=== PATIENT | male | born 1930 | race Caucasian/White ===

== ENCOUNTER 2018-10-27 19:51 | Observation (INO) ==
--- NOTE | 2018-10-27 20:12 | ERNOTE ---
Dyspnea - Date Date of Service: 10/27/18 - General Presenting Symptoms: shortness of breath, other - confused Time Seen by Provider: 10/27/18 20:01 Source: EMS Exam Limitations: clinical condition - Immun/Allergies/Home Medications Immunizations: IMMUNIZATION HX Immunizations Up to Date unknown History of Influenza Vaccine More Information Required Hx Pneumococcal Vaccination More Information Required Allergies/Adverse Reactions: Allergies No Known Drug Allergies Allergy (Verified 10/27/18 21:28) Home Medications: HOME MEDICATIONS Acetaminophen [Tylenol] 600 mg PO Q4H PRN 10/27/18 [Last Taken Unknown] Carbidopa/Levodopa [Carbidopa-Levodopa 25-100 Tab] 1 tab PO TID 10/27/18 [Last Taken Unknown] Dextran 70/Hypromellose [Natural Balance Tears Eye Drop] 3 - 4 drp EACHEYE DAILY 10/27/18 [Last Taken Unknown] Furosemide [Lasix] 40 mg PO DAILY 10/27/18 [Last Taken Unknown] Propylene Glycol/Peg 400/Pf [Systane 0.3-0.4% Eye Drops] 1 drp EACHEYE TID 10/27/18 [Last Taken Unknown] RX: Memantine HCl 10 mg PO BID 10/27/18 [Last Taken Unknown] Sennosides/Docusate Sodium [Senexon-S Tablet] 2 tab PO BID PRN 10/27/18 [Last Taken Unknown] guaiFENesin/DEXTROMETHORPHAN [Sm Tussin Dm Liquid] 10 ml PO Q4H PRN 10/27/18 [Last Taken Unknown] - History of Present Illness Narrative: 88 year old male with history of parkinsons, presenting with altered mental status. He is brought in from the skilled nursing due to confusion, possible stroke symptoms, dyspnea. He appears anxious, non communicative. Denies symptoms. He can move both arms. He is maintaining his airway. He was brought in due to altered mental status that started at dinner. He is alert, and follows commands in the ER. He is tachycardic, and in A Fib. 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 Initiating event: Reports: unknown Review of Systems - Review of Systems Constitutional: Present: See HPI EYE: Present: no symptoms reported ENT: Present: no symptoms reported Respiratory: Present: shortness of breath Cardiology: Present: no symptoms reported Gastrointestinal/Abdominal: Present: no symptoms reported Genitourinary: Present: no symptoms reported Musculoskeletal: Present: no symptoms reported Skin: Present: no symptoms reported Neurological: Present: weakness Endocrine: Present: no symptoms reported Hematologic/Lymphatic: Present: no symptoms reported Psych: Present: anxiety Medical History (Last Reviewed 10/27/18 @ 20:10 by Radha Sethi MD) Dry eye syndrome (Chronic) Onset Date: Unknown Constipation (Chronic) Onset Date: Unknown Cough (Chronic) Onset Date: Unknown Parkinsons disease (Chronic) Onset Date: Unknown Osteoporosis (Chronic) Onset Date: Unknown Dementia (Chronic) Onset Date: Unknown Edema Onset Date: Unknown Surgical History: Surgical History (Last Reviewed 10/28/18 @ 05:49 by Radha Sethi MD) Surgical history unknown Family History: Family History (Last Reviewed 10/28/18 @ 05:49 by Radha Sethi MD) Other Family history unknown Social History: Preferred Language Brazilian Smoking Status Unknown if ever smoked Alcohol Use none Drug Use none (Last Reviewed 10/18/18 @ 08:53 by Tabitha Benitez) No Social History Section defined Physical Exam - Physical Exam General Appearance: Present: wd/wn, alert, mild distress Head Exam: Present: normal inspection, no evidence of injury Eye Exam: Normal inspection: bilateral, PERRL: bilateral, EOMI: bilateral Ears, Nose, Throat: Present: normal ENT inspection, normal pharynx Neck: Present: normal inspection, nontender Respiratory: Present: no respiratory distress, normal breath sounds, no accessory muscle use, chest nontender, decreased breath sounds Cardiovascular/Chest: Present: no murmur, normal peripheral pulses, tachycardia Gastrointestinal/Abdominal: Present: normal bowel sounds, nontender, nondistended, soft, no organomegaly Back Exam: Present: normal inspection, normal range of motion, no CVA tenderness, no vertebral tenderness Extremity Exam: Present: normal inspection, non-tender, normal range of motion Neurological Exam: Present: alert, other - non communicative, however he does follow some commands and is able to use his upper extremities he appears anxious Skin Exam: Present: normal color, warm/dry Lymphatic Exam: Present: no adenopathy Progress - Results and Orders Patient's Lab Results:: I have reviewed the patient's lab results. - Vital Signs Patient's Vital Signs:: I have reviewed the patient's vital signs. Vital Signs: Vital Signs 10/27/18 19:52 Temperature 37.4 C Pulse Rate 107 H Respiratory Rate 25 H Blood Pressure 133/73 O2 Sat by Pulse Oximetry 93 - EKG EKG #1 EKG: other EKG read: Interp. by me - sinus tachycardia with frequent supraventricular premature complexes, no acute ST or T wave abnormalities, compared with prior EKG on 12/25/17 - X-Ray X-Ray #1 X-Ray: chest - unable to exclude left lower lobe infiltrate, cardiomegaly, mild interstitial change suggesting CHF - CT/Ultrasound CT/Ultrasound Narrative: Head CT no acute disease in the brain. Sinusitis - Progress/Reassessment Chief Complaint: Dyspnea - Transfer of Care Receiving Physician: Kathy Cagle Expected Disposition: Admit - Admit to Dr. Cagle Plan - Plan Plan: repeat EKG Atrial fibrillation [address] Cagle will admit for new onset atrial fibrillation, he does have elevated LFTs probably related to CHF. Cardizem drip will be started Departure Clinical Impression: Atrial fibrillation - Departure Disposition: Still a patient Condition: Fair
[2018-10-27 20:23] LABS: Hematocrit 39.5 % (42.0-52.0); Hemoglobin 13.4 gm/dL (13.5-18.0); Mean Cell Volume 96.8 fl (78-100); Mean Corpuscular Hemoglobin 32.8 pg (27-31); Mean Corpuscular Hgb Conc 33.9 g/dl (32-36); Mean Platelet Volume 10.2 fl (8-11.3); Neutrophil # 10.5 K/mm3 (1.3-6.0); Neutrophil % 79.3 % (42-75.0); Platelet Count 253 K/mm3 (150-450); Red Blood Count 4.08 M/mm3 (4.7-6.0); Red Cell Distribution Width 13.1 % (11.5-14.0); White Blood Count 13.3 K/mm3 (4.0-10.5)
[2018-10-27 20:44] LABS: ALT 278 U/L (19-67); AST 349 U/L (0-48); Albumin * 2.3 gm/dl (3.4-5.0); Alkaline Phosphatase * 256 U/L (50-170); Anion Gap 17.4 mmol/L (6.8-13.8); BNP * 1080 pg/mL (5-650); Bilirubin, Total 2.5 mg/dL (0.0-1.1); Blood Urea Nitrogen 19 mg/dL (6-23); Ca. Corrected For Albumin 9.2 mg/dL (8.4-10.2); Calcium * 8.2 mg/dL (7.9-10.9); Carbon Dioxide 21.9 mmol/L (24-32.6); Chloride 102 mmol/L (97-106); Glucose * 145 mg/dL (70-110); Potassium 3.3 mmol/L (3.4-4.6); Sodium 138 mmol/L (132-142); Total Protein 7.5 gm/dL (6.2-8.2)
[2018-10-27 20:51] LABS: Troponin I Less than 0.017 ng/mL (0.00-0.10)
[2018-10-27] MEDS ORDERED: DILTIAZEM HCL 5 MG/ML VIAL IV ONE ×2 (22:04→22:06)
[2018-10-27] MEDS ORDERED: NORMAL SALINE 500 ML IV ONE (22:30)
[2018-10-27 22:47] LABS: Urine Bilirubin 3 mg/dl (NEGATIVE); Urine Ketone 5 mg/dL (NEGATIVE); Urine Nitrite Negative (NEGATIVE); Urine Protein 100 mg/dL (NEGATIVE); Urine Specific Gravity >=1.030 SP.GR. (1.005-1.030); Urine Urobilinogen >=8.0 EU/dl (NORMAL)
[2018-10-27] MEDS ORDERED: ENOXAPARIN SODIUM 80 MG/0.8 ML DISP.SYRIN SC ONE (22:49)
[2018-10-27 22:51] LABS: INR 1.3 INR (0.90-1.10); Partial Thrombolplastin Time 31.6 Seconds (24-32)
[2018-10-27] MEDS ORDERED: DILTIAZEM HCL 125 MG in DEXTROSE 5 % IN WATER 100 ML IV PRN ×2 (22:59)
[2018-10-27 23:06] LABS: Urine Appearance Cloudy (CLEAR); Urine Blood 5 /ul (NEGATIVE); Urine Color Orange; Urine RBC TRACE /hpf (0-5); Urine Renal Epithelial Cell Few - 1+ /hpf; Urine WBC None Seen /hpf (0-5)
[2018-10-27 23:07] LABS: Urine Amorphous Sediment Few - 1+ (NONE-FEW); Urine Bacteria 1+; Urine Mucus Moderate - 2+
[2018-10-28] MEDS ORDERED: ENOXAPARIN SODIUM 80 MG/0.8 ML DISP.SYRIN SC ONE (00:33)
[2018-10-28] MEDS ORDERED: DILTIAZEM HCL 30 MG TABLET PO SCH (03:15)
[2018-10-28] MEDS: METOPROLOL TARTRATE 25 MG TABLET PO SCH ×2 (03:35→08:19)
[2018-10-28] MEDS ORDERED: SENNOSIDES/DOCUSATE SODIUM 1 TAB TABLET PO PRN (07:10)
[2018-10-28] MEDS ORDERED: ACETAMINOPHEN 325 MG TABLET PO PRN (07:10)
[2018-10-28] MEDS: CARBIDOPA/LEVODOPA 25/100 1 TAB TABLET PO SCH ×3 (08:19→17:25)
[2018-10-28] MEDS: MEMANTINE HCL 10 MG TABLET PO SCH ×2 (08:19→22:52)
--- NOTE | 2018-10-28 09:35 | HP ---
Chief Complaint - Chief Complaint Date of Service: 10/28/18 Time of Service: 07:20 Chief Complaint: atrial fib, choking episode, abnormal LFTs History of Present Illness: Mr. White is an 88 yo wh male that was admitted yesterday throught he ER after having a choking episode at the [facility] where he has been a resident for several years. He became distressed and was sent to ER for evaluation. He was found to be in A-fib with RVR and then converted back to NSR about 2:30 this morning. He has advanced dementia and Parkinson's dz. His admitting lab shows all liver enzymes to be elevated. Etiology is unknown at this time. He did eat breakfast this morning so a fasting abd. us is not possible but I will proceed anyway. I suspect it is biliary outlet obstruction from something. 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 Osteoarthritis Presence of intraocular lens Tinnitus Unspecified open-angle glaucoma, stage unspecified Unspecified sensorineural hearing loss Edema Onset Date: Unknown Surgical History: Surgical History (Last Reviewed 10/28/18 @ 05:49 by Radha Sethi MD) Surgical history unknown Family History: Family History (Last Reviewed 10/28/18 @ 05:49 by Radha Setih MD) Other Family history unknown Social History: Patient Lives/Resources [facility] Utilized Preferred Language Italian Smoking Status Never smoker Have you smoked in the past 12 unknown months Alcohol Use none Drug Use none (Last Reviewed 10/18/18 @ 08:53 by Tabitha Benitez) No Social History Section defined Review Of Systems (GEN) - Review of Systems EENTM: Present: No Symptoms Reported Respiratory: Present: Cough, Shortness of Breath Cardiac: Present: Palpitations Abdominal: Present: Nausea, Abdominal Pain Genitourinary: Present: Incontinent Musculoskeletal: Present: Other - stiffness from Parkinson's dz. Neurological: Present: Tremors - Parkinsonian Skin: Present: No Symptoms Reported Endocrine: Present: No Symptoms Reported Misc: All systems neg except as marked Immunizations: IMMUNIZATION HX Immunizations Up to Date unknown History of Influenza Vaccine More Information Required Hx Pneumococcal Vaccination More Information Required Allergies/Adverse Reactions: Allergies Allergy/AdvReac Type Severity Reaction Status Date / Time No Known Drug Allergies Allergy Verified 10/27/18 21:28 Home Medications: HOME MEDICATIONS Acetaminophen [Tylenol] 600 mg PO Q4H PRN 10/27/18 [Last Taken Unknown] Carbidopa/Levodopa [Carbidopa-Levodopa 25-100 Tab] 1 tab PO TID 10/27/18 [Last Taken Unknown] Dextran 70/Hypromellose [Natural Balance Tears Eye Drop] 3 - 4 drp EACHEYE DAILY 10/27/18 [Last Taken Unknown] Furosemide [Lasix] 40 mg PO DAILY 10/27/18 [Last Taken Unknown] Memantine HCl 10 mg PO BID 10/27/18 [Last Taken Unknown] Propylene Glycol/Peg 400/Pf [Systane 0.3-0.4% Eye Drops] 1 drp EACHEYE TID 10/27/18 [Last Taken Unknown] Sennosides/Docusate Sodium [Senexon-S Tablet] 2 tab PO BID PRN 10/27/18 [Last Taken Unknown] guaiFENesin/DEXTROMETHORPHAN [Sm Tussin Dm Liquid] 10 ml PO Q4H PRN 10/27/18 [Last Taken Unknown] Exam - Exam Vital Signs: Vital Signs - Last Taken Temp 36.6 C 10/28/18 08:02 Pulse 91 10/28/18 08:19 Resp 18 10/28/18 08:02 BP 114/70 10/28/18 08:19 Pulse Ox 94 10/28/18 08:02 Constitutional: Present: Alert, Cooperative, Well developed, Well nourished, Mild distress, Lethargic, Elderly. Absent: Oriented x3 ENT Exam: Present: normal ENT inspection Eye Exam: bilateral eye: normal inspection, PERRL, EOMI Neck: Present: non-tender, full range of motion, supple, normal inspection Back Exam: Present: normal inspection, no CVA tenderness, no vertebral tenderness Breasts: Present: Exam deferred Respiratory: Present: lungs clear, normal breath sounds, decreased breath sounds Cardiovascular/Chest: Present: normal peripheral pulses, tachycardia, edema - And opositive HJR at 90deg. Peripheral Pulses: carotid (R): 2+, carotid (L): 2+, radial (R): 2+, radial (L): 2+ Abdomen: Present: Normal bowel sounds, soft, nontender, nondistended. 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 Appearance: Present: appropriate appearance, impaired insight, impaired recent memory, impaired remote memory Eye contact: Present: cooperative, good eye contact. Absent: normal speech - Speech is one word, usually NO. Thoughts: Present: no apparent hallucination. Absent: normal thought pattern Diagnostic Studies: Abnormal Lab Results 10/27/18 10/27/18 10/27/18 Range/Units 20:20 20:20 22:40 WBC 13.3 H (4.0-10.5) K/mm3 RBC 4.08 L (4.7-6.0) M/mm3 Hgb 13.4 L (13.5-18.0) gm/dL Hct 39.5 L (42.0-52.0) % MCH 32.8 H (27-31) pg Immature Gran % (Auto) 1.00 H (0.001-0.429) % Immature Gran # (Auto) 0.13 H (0.000-0.0310) K/mm3 Neutrophils % 79.3 H (42-75.0) % Lymphocytes % 10.0 L (20-51) % Monocytes % 9.4 H (0.0-9) % Neutrophils # 10.5 H (1.3-6.0) K/mm3 Lymphocytes # 1.32 L (1.5-3.5) k/mm3 Monocytes # 1.2 H (0.0-1.0) k/mm3 PT 13.0 H (9.0-11.0) Seconds INR (Anticoag Therapy) 1.30 H (0.90-1.10) INR Potassium 3.3 L (3.4-4.6) mmol/L Carbon Dioxide 21.9 L (24-32.6) mmol/L Anion Gap 17.4 H (6.8-13.8) mmol/L Random Glucose 145 H (70-110) mg/dL Total Bilirubin 2.5 H (0.0-1.1) mg/dL AST 349 H (0-48) U/L ALT 278 H (19-67) U/L Alkaline Phosphatase 256 H (50-170) U/L B-Natriuretic Peptide 1080 H (5-650) pg/mL Albumin 2.3 L (3.4-5.0) gm/dl Urine Protein (NEGATIVE) mg/dL Urine Glucose (UA) (NEGATIVE) mg/dL Urine Blood (NEGATIVE) /ul Urine Bilirubin (NEGATIVE) mg/dl Urine Ictotest (NEGATIVE) Prot Sulfosalicylic Acd (0) mg/dL Urine Urobilinogen (NORMAL) EU/dl Ur Renal Epithelial Cell (NONE) /hpf Urine Bacteria (NONE) Urine Mucus (NONE) 10/27/18 Range/Units 22:40 WBC (4.0-10.5) K/mm3 RBC (4.7-6.0) M/mm3 Hgb (13.5-18.0) gm/dL Hct (42.0-52.0) % MCH (27-31) pg Immature Gran % (Auto) (0.001-0.429) % Immature Gran # (Auto) (0.000-0.0310) K/mm3 Neutrophils % (42-75.0) % Lymphocytes % (20-51) % Monocytes % (0.0-9) % Neutrophils # (1.3-6.0) K/mm3 Lymphocytes # (1.5-3.5) k/mm3 Monocytes # (0.0-1.0) k/mm3 PT (9.0-11.0) Seconds INR (Anticoag Therapy) (0.90-1.10) INR Potassium (3.4-4.6) mmol/L Carbon Dioxide (24-32.6) mmol/L Anion Gap (6.8-13.8) mmol/L Random Glucose (70-110) mg/dL Total Bilirubin (0.0-1.1) mg/dL AST (0-48) U/L ALT (19-67) U/L Alkaline Phosphatase (50-170) U/L B-Natriuretic Peptide (5-650) pg/mL Albumin (3.4-5.0) gm/dl Urine Protein 100 H (NEGATIVE) mg/dL Urine Glucose (UA) 250 H (NEGATIVE) mg/dL Urine Blood 5 H (NEGATIVE) /ul Urine Bilirubin 3 H (NEGATIVE) mg/dl Urine Ictotest Positive H (NEGATIVE) Prot Sulfosalicylic Acd 4+ H (0) mg/dL Urine Urobilinogen >=8.0 H (NORMAL) EU/dl Ur Renal Epithelial Cell Few - 1+ H (NONE) /hpf Urine Bacteria 1+ H (NONE) Urine Mucus Moderate - 2+ H (NONE) Microbiology 10/27/18 23:08 Urine Culture - Preliminary Urine,Catheterized No Growth Laboratory Results WBC 13.3 K/mm3 (4.0-10.5) H 10/27/18 20:20 RBC 4.08 M/mm3 (4.7-6.0) L 10/27/18 20:20 Hgb 13.4 gm/dL (13.5-18.0) L 10/27/18 20:20 Hct 39.5 % (42.0-52.0) L 10/27/18 20:20 MCV 96.8 fl (78-100) 10/27/18 20:20 MCH 32.8 pg (27-31) H 10/27/18 20:20 MCHC 33.9 g/dl (32-36) 10/27/18 20:20 RDW 13.1 % (11.5-14.0) 10/27/18 20:20 Plt Count 253 K/mm3 (150-450) 10/27/18 20:20 MPV 10.2 fl (8-11.3) 10/27/18 20:20 Immature Gran % (Auto) 1.00 % (0.001-0.429) H 10/27/18 20:20 Immature Gran # (Auto) 0.13 K/mm3 (0.000-0.0310) H 10/27/18 20:20 Neutrophils % 79.3 % (42-75.0) H 10/27/18 20:20 Lymphocytes % 10.0 % (20-51) L 10/27/18 20:20 Monocytes % 9.4 % (0.0-9) H 10/27/18 20:20 Eosinophils % 0.1 % (0.0-3.0) 10/27/18 20:20 Basophils % 0.2 % (0.0-1.0) 10/27/18 20:20 Nucleated RBC % 0.0 k/mm3 (0-1) 10/27/18 20:20 Neutrophils # 10.5 K/mm3 (1.3-6.0) H 10/27/18 20:20 Lymphocytes # 1.32 k/mm3 (1.5-3.5) L 10/27/18 20:20 Monocytes # 1.2 k/mm3 (0.0-1.0) H 10/27/18 20:20 Eosinophils # 0.0 k/mm3 (0.0-0.7) 10/27/18 20:20 Absolute Basophils 0.0 k/mm3 (0.0-0.1) 10/27/18 20:20 PT 13.0 Seconds (9.0-11.0) H 10/27/18 22:40 INR (Anticoag Therapy) 1.30 INR (0.90-1.10) H 10/27/18 22:40 PTT ([place]) 31.6 Seconds (24-32) 10/27/18 22:40 Sodium 138 mmol/L (132-142) 10/27/18 20:20 Plasma Sodium 139 mmol/L (130-142) 10/27/18 20:20 Potassium 3.3 mmol/L (3.4-4.6) L 10/27/18 20:20 Chloride 102 mmol/L (97-106) 10/27/18 20:20 Carbon Dioxide 21.9 mmol/L (24-32.6) L 10/27/18 20:20 Anion Gap 17.4 mmol/L (6.8-13.8) H 10/27/18 20:20 BUN 19 mg/dL (6-23) 10/27/18 20:20 Creatinine 1.00 mg/dL (0.4-1.4) 10/27/18 20:20 Est GFR (Non-Af Amer) 75 mL/min (60-130) 10/27/18 20:20 BUN/Creatinine Ratio 19.0 (9.0-21.6) 10/27/18 20:20 Random Glucose 145 mg/dL (70-110) H 10/27/18 20:20 Lactic Acid, Venous 1.6 mmol/L (0.4-2.0) 10/27/18 20:20 Calcium 8.2 mg/dL (7.9-10.9) 10/27/18 20:20 Calcium Adj for Albumin 9.2 mg/dL (8.4-10.2) 10/27/18 20:20 Total Bilirubin 2.5 mg/dL (0.0-1.1) H 10/27/18 20:20 AST 349 U/L (0-48) H 10/27/18 20:20 ALT 278 U/L (19-67) H 10/27/18 20:20 Alkaline Phosphatase 256 U/L (50-170) H 10/27/18 20:20 Troponin I Less than 0.017 ng/mL (0.00-0.10) 10/27/18 20:20 B-Natriuretic Peptide 1080 pg/mL (5-650) H 10/27/18 20:20 Total Protein 7.5 gm/dL (6.2-8.2) 10/27/18 20:20 Albumin 2.3 gm/dl (3.4-5.0) L 10/27/18 20:20 Urine Color [place] 10/27/18 22:40 Urine Appearance Cloudy (CLEAR) 10/27/18 22:40 Urine pH 6.0 pH (5.0-7.0) 10/27/18 22:40 Ur Specific [place] >=1.030 SP.GR. (1.005-1.030) 10/27/18 22:40 Urine Protein 100 mg/dL (NEGATIVE) H 10/27/18 22:40 Urine Glucose (UA) 250 mg/dL (NEGATIVE) H 10/27/18 22:40 Urine Ketones 5 mg/dL (NEGATIVE) 10/27/18 22:40 Urine Blood 5 /ul (NEGATIVE) H 10/27/18 22:40 Urine Nitrate Negative (NEGATIVE) 10/27/18 22:40 Urine Bilirubin 3 mg/dl (NEGATIVE) H 10/27/18 22:40 Urine Ictotest Positive (NEGATIVE) H 10/27/18 22:40 Prot Sulfosalicylic Acd 4+ mg/dL (0) H 10/27/18 22:40 Urine Urobilinogen >=8.0 EU/dl (NORMAL) H 10/27/18 22:40 Ur Leukocyte Esterase Negative /ul (NEGATIVE) 10/27/18 22:40 Urine RBC Trace /hpf (0-5) 10/27/18 22:40 Urine WBC None seen /hpf (0-5) 10/27/18 22:40 Ur Epithelial Cells Trace /hpf (0-5) 10/27/18 22:40 Ur Renal Epithelial Cell Few - 1+ /hpf (NONE) H 10/27/18 22:40 Amorphous Sediment Few - 1+ (NONE-FEW) 10/27/18 22:40 Urine Bacteria 1+ (NONE) H 10/27/18 22:40 Urine Mucus Moderate - 2+ (NONE) H 10/27/18 22:40 Urine Culture Comments Culture to follow 10/27/18 22:40 Assessment/Plan - Narrative Narrative: He came in with A-fib which has spontaneously converted. He was found to have gilliam elevation of his LFTs with elevated bilirubin and hyperbilirubinuria. An abdominal US is ordered. This appears to be biliary outlet obstruction but the etiology is yet to be determined. He was admitted to [place] for a regular hospital stay. - Assessment/Plan (1) Abnormal LFTs (liver function tests) Problem: Acute (2) Weakness Problem: Acute (3) Atrial fibrillation Problem: Acute (4) Cough Problem: Chronic (5) Parkinsons disease Problem: Chronic (6) Dementia Problem: Chronic Qualifiers: Dementia type: Parkinson's disease
[2018-10-29 05:33] LABS: Hematocrit 37.2 % (42.0-52.0); Hemoglobin 12.4 gm/dL (13.5-18.0); Mean Cell Volume 97.9 fl (78-100); Mean Corpuscular Hemoglobin 32.6 pg (27-31); Mean Corpuscular Hgb Conc 33.3 g/dl (32-36); Mean Platelet Volume 10.6 fl (8-11.3); Neutrophil # 8.6 K/mm3 (1.3-6.0); Neutrophil % 71.2 % (42-75.0); Platelet Count 266 K/mm3 (150-450); Red Cell Distribution Width 13.3 % (11.5-14.0)
[2018-10-29 05:50] LABS: Anion Gap 12.2 mmol/L (6.8-13.8); BUN/Creatinine Ratio 18.8 (9.0-21.6); Bilirubin, Total 0.9 mg/dL (0.0-1.1); Ca. Corrected For Albumin 9.7 mg/dL (8.4-10.2); Calcium * 8.4 mg/dL (7.9-10.9); Carbon Dioxide 25.3 mmol/L (24-32.6); Potassium 3.5 mmol/L (3.4-4.6); Total Protein 6.7 gm/dL (6.2-8.2)
[2018-10-29] MEDS: CARBIDOPA/LEVODOPA 25/100 1 TAB TABLET PO SCH ×2 (09:00→14:02)
[2018-10-29] MEDS ORDERED: MORPHINE SULFATE 4 MG/ML SYRG IV ONE (11:15)
[2018-10-29 13:30] VITALS: BP 140/80
--- NOTE | 2018-10-29 13:33 | DS ---
(1) Choledocholithiasis with cholecystitis Problem: Acute (2) Abnormal LFTs (liver function tests) Problem: Acute (3) Weakness Problem: Resolved (4) Atrial fibrillation Problem: Resolved (5) Cough Problem: Chronic (6) Parkinsons disease Problem: Chronic (7) Dementia Problem: Chronic Qualifiers: Dementia type: Parkinson's disease Description of Stay: Javon White is an 88-year-old male who was admitted through the ER with chief complaint of shortness of breath, anxiety, irregular heart rhythm. In the emergency room he was discovered to be in atrial fibrillation with RVR. He has a large hiatal hernia that may have been mistaken for pneumonia but the chest x-ray does not reveal any pneumonia. The patient was admitted to the hospital through Dr. Cagle who was on-call. During the night he converted back to normal sinus rhythm spontaneously and remained there. I assumed his care at 8:00 yesterday morning and found him to be in normal sinus rhythm. In reviewing the chart I found that all his liver enzymes were elevated including bilirubin and alkaline phosphatase as well as transaminases. The abdomen was soft and I could not elicit any guarding from him. Because of his dementia could not determine whether he had pain or not. I attempted Gong's test but he was unable to take a deep breath on command. Abdominal ultrasound revealed what appears to be multiple stones in the gallbladder edema of the gallbladder sac. Speaking with the surgeons were determined to do a HIDA scan which shows no visualization of the gallbladder but there is good drainage through the common bile duct now. The liver enzymes this morning are much improved. The white count has also come down to normal. I decided to treat him with oral antibiotics, Bactrim DS, twice a day for 7 days, monitor his white count and tushar er enzymes every 3 days for the next 10 days, and monitor vital signs twice daily. If he continues to improve and no surgical intervention will be done. If he does worsen then he'll have to go to the [facility] to have laparoscopic cholecystectomy. I spoken with his who is his POA and explained the course of events and findings and my recommendations in which she is in agreement. She understands that he may have further gallbladder attacks in the future because of the continued large amount of stones in his gallbladder. [facility]'ll be returned to [facility]. Procedures Performed: see notes below List Procedures: Abdominal ultrasound, hepatobiliary scan, Results and Findings: Pending Mircobiology Results 10/27/18 23:08 Urine,Catheterized Urine Culture - Preliminary No Growth Lab Pending Results 10/27/18 20:20: WBC 13.3 H, RBC 4.08 L, Hgb 13.4 L, Hct 39.5 L, MCV 96.8, MCH 32.8 H, MCHC 33.9, RDW 13.1, Plt Count 253, MPV 10.2, Immature Gran % (Auto) 1.00 H, Immature Gran # (Auto) 0.13 H, Neutrophils % 79.3 H, Lymphocytes % 10.0 L, Monocytes % 9.4 H, Eosinophils % 0.1, Basophils % 0.2, Nucleated RBC % 0.0, Neutrophils # 10.5 H, Lymphocytes # 1.32 L, Monocytes # 1.2 H, Eosinophils # 0.0, Absolute Basophils 0.0 10/27/18 20:20: Sodium 138, Plasma Sodium 139, Potassium 3.3 L, Chloride 102, Carbon Dioxide 21.9 L, Anion Gap 17.4 H, BUN 19, Creatinine 1.00, Est GFR (Non- Af Amer) 75, BUN/Creatinine Ratio 19.0, Random Glucose 145 H, Calcium 8.2, Calcium Adj for Albumin 9.2, Total Bilirubin 2.5 H, AST 349 H, ALT 278 H, Alkaline Phosphatase 256 H, Troponin I Less than 0.017, B-Natriuretic Peptide 1080 H, Total Protein 7.5, Albumin 2.3 L 10/27/18 20:20: Lactic Acid, Venous 1.6 10/27/18 22:40: PT 13.0 H, INR (Anticoag Therapy) 1.30 H, PTT (Marnie) 31.6 10/27/18 22:40: Urine Color [place], Urine Appearance Cloudy, Urine pH 6.0, Ur Specific [place] >=1.030, Urine Protein 100 H, Urine Glucose (UA) 250 H, Urine Ketones 5, Urine Blood 5 H, Urine Nitrate Negative, Urine Bilirubin 3 H, Urine Ictotest Positive H, Prot Sulfosalicylic Acd 4+ H, Urine Urobilinogen >=8.0 H, Ur Leukocyte Esterase Negative, Urine RBC Trace, Urine WBC None seen, Ur Epithelial Cells Trace, Ur Renal Epithelial Cell Few - 1+ H, Amorphous Sediment Few - 1+, Urine Bacteria 1+ H, Urine Mucus Moderate - 2+ H, Urine Culture Comm ents Culture to follow 10/29/18 05:15: WBC 12.0 H, RBC 3.80 L, Hgb 12.4 L, Hct 37.2 L, MCV 97.9, MCH 32.6 H, MCHC 33.3, RDW 13.3, Plt Count 266, MPV 10.6, Immature Gran % (Auto) 1.00 H, Immature Gran # (Auto) 0.12 H, Neutrophils % 71.2, Lymphocytes % 16.8 L, Monocytes % 9.6 H, Eosinophils % 1.2, Basophils % 0.2, Nucleated RBC % 0.0, Neutrophils # 8.6 H, Lymphocytes # 2.01, Monocytes # 1.2 H, Eosinophils # 0.1, Absolute Basophils 0.0 10/29/18 05:15: Sodium 144 H, Plasma Sodium 144 H, Potassium 3.5, Chloride 110 H, Carbon Dioxide 25.3, Anion Gap 12.2, BUN 15, Creatinine 0.80, Est GFR (Non-Af Amer) 97 D, BUN/Creatinine Ratio 18.8, Random Glucose 113 H, Calcium 8.4, Calcium Adj for Albumin 9.7, Total Bilirubin 0.9, AST 67 H, ALT 139 H, Alkaline Phosphatase 185 H, Total Protein 6.7, Albumin 2.0 L Discharge Location: [facility] Disposition: Intermediate Care Facility ICF Condition: Fair Level of Care: ICF Discharge Activity: Activity as tolerated, Other - resume usual activities Discharge Diet: Mech soft, Other - nectar thickened liquids Referrals: Rell Ordonez DO [Primary Care Provider] - Prescriptions (Any new or edited meds): RX: Metoprolol Tartrate [Lopressor] 25 mg PO BID #60 tablet Sulfamethoxazole/Trimethoprim [Bactrim Ds] 1 tab PO BID #14 tab Complete Home Medications List: Complete Home Medication List: RX: Acetaminophen [Tylenol] 600 mg PO Q4H PRN 10/27/18 RX: Carbidopa/Levodopa [Carbidopa-Levodopa 25-100 Tab] 1 tab PO TID 10/27/18 RX: Dextran 70/Hypromellose [Natural Balance Tears Eye Drop] 3 - 4 drp EACHEYE DAILY 10/27/18 RX: Furosemide [Lasix] 40 mg PO DAILY 10/27/18 RX: Memantine HCl 10 mg PO BID 10/27/18 RX: Propylene Glycol/Peg 400/Pf [Systane 0.3-0.4% Eye Drop] 1 drp EACHEYE TID 10/27/18 RX: Sennosides/Docusate Sodium [Senexon-S Tablet] 2 tab PO BID PRN 10/27/18 RX: guaiFENesin/DEXTROMETHORPHAN [Sm Tussin Dm Liquid] 10 ml PO Q4H PRN 10/27/18 RX: Metoprolol Tartrate [Lopressor] 25 mg PO BID #60 tablet 10/29/18 Sulfamethoxazole/Trimethoprim [Bactrim Ds] 1 tab PO BID #14 tab 10/29/18
[2018-10-29] MEDS: METOPROLOL TARTRATE 25 MG TABLET PO SCH (14:02)
[2018-10-29] MEDS: MEMANTINE HCL 10 MG TABLET PO SCH (14:02)
== END 2018-10-29 14:30 ==
LOC: ER 19:51 → SCU 22:53 → INTOOBSV 22:53 → SCU 10-28 01:26 → MS 10-28 04:55
PROVIDERS: ADMIT Family Medicine; ATTEND Family Medicine
CPT/HCPCS: 36415; 70450; 71010; 71045; 76700; 78226; 80053; 81001; 83519; 83605; 83880; 84484; 85025; 85610; 85730; 87081; 87086; 93005; 96361; 96365; 96372; 96375; 99285; A9537; G0378